=== PATIENT | female | born 1945 | race Caucasian/White ===

== ENCOUNTER 2020-02-01 22:46 | Emergency (ER) | payer MEDICARE ==
--- NOTE | 2020-02-02 00:10 | Emergency Department Note ---
History of Present Illnes History of Present Illness Chief Complaint: General Medicine Complaints History of Present Illness This is a 74 year old female PRESENTS TO THE ER VIA EMS FROM [facility] REPORTING AMS, HYPOXIA AND SOB PER RN AT [facility]; PER EMS, PT HAS BEEN ALTERED AND COMBATIVE THE PAST X2 DAYS; PTS BASELINE [id number]; PT DENIES CP OR SOB; SPO2 96% RA. 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 Arrival Mode: [place] Onset (how long ago): hour(s) (3) Location: NONE Quality: REPORTE LOW OXYGEN SATURATION Radiation: Reports non-radiation Severity: unable to specify Onset quality: sudden Duration (how long): hour(s) (3) Timing of current episode: unable to specify Progression: unable to specify Chronicity: new Context: Denies recent illness, Denies recent surgery Relieving factors: none Exacerbating factors: none Associated symptoms: Reports denies other symptoms Treatments prior to arrival: none Past Medical/Family History Physician Review I have reviewed the patient's past medical and family history. Any updates have been documented here. Past Medical History Recent Fever: No Clinical Suspicion of Infectio: No New/Unexplained Change in Ment: No Past Medical History: COPD, Asthma, Anxiety, Other Mental Illness Other Medical History: DEMENTIA DYSPHAGIA ALZHEIMERS Other Surgery: RT TOTAL KNEE REPLACEMENT Social History Smoking Cessation: Former smoker Counseling Performed: No Alcohol Use: None Any Illegal Drug Use: No Other Any Pre-Existing Lines (PICC,: No Review of Systems Review of Systems Constitutional: Reports no symptoms EENTM: Reports no symptoms Cardiovascular: Reports no symptoms Respiratory: Reports no symptoms Gastrointestinal: Reports no symptoms Genitourinary: Reports no symptoms Musculoskeletal: Reports no symptoms Integumentary: Reports no symptoms Neurological: Reports no symptoms Psychological: Reports no symptoms Endocrine: Reports no symptoms Hematological/Lymphatic: Reports no symptoms Review of other systems: All other systems negative Physical Exam Related Data Allergies: Coded Allergies: Penicillins (Verified Allergy, Unknown, 02/01/20) iodine (Verified Allergy, Unknown, 02/01/20) Uncoded Allergies: ORAL AND IV CONTRAST (Allergy, Unknown, 02/01/20) Triage Vital Signs Vital Signs Date Time Temp Pulse Resp B/P (MAP) Pulse Ox O2 Delivery O2 Flow Rate FiO2 02/01/20 23:36 97.8 92 20 136/92 96 Room Air Vital signs reviewed: Yes Physical Exam CONSTITUTIONAL Constitutional: Present well-developed, Present well-nourished HENT HENT: Present normocephalic, Present atraumatic, Present oropharynx clear/moist, Present nose normal HENT L/R: Present left ext ear normal, Present right ext ear normal EYES Eyes: Reports PERRL, Reports conjunctivae normal NECK Neck: Present ROM normal PULMONARY Pulmonary: Present effort normal, Present breath sounds normal CARDIOVASCULAR Cardiovascular: Present regular rhythm, Present heart sounds normal, Present capillary refill normal, Present normal rate GASTROINTESTINAL Abdominal: Present soft, Present nontender, Present bowel sounds normal GENITOURINARY Genitourinary: Present exam deferred SKIN Skin: Present warm, Present dry MUSCULOSKELETAL Musculoskeletal: Present ROM normal NEUROLOGICAL Neurological: Present alert, Present no gross motor or sensory deficits, Present other (PT DISORIENTED TO TIME AND THIS IS HER BASELINE) PSYCHOLOGICAL Psychological: Present mood/affect normal, Present judgement normal Results Imaging Imaging results reviewed: Yes Assessment & Plan Medical Decision Making MDM PT WITH REPORTED LOW OXYGEN SATURATION,PT OXYGEN SATURATION 96% ON ROOM AIR AND PT IS NOT IN RESPIRATORY DISTRESS CXR ORDERED TO EVAL FOR PNEUMONIA, PULMONARY PATRIA,A Assessment & Plan Final Impression: (1) Dementia Depart Disposition: XFER TO PSYCH HOSP/UNIT Last Vital Signs Date Time Temp Pulse Resp B/P (MAP) Pulse Ox O2 Delivery O2 Flow Rate FiO2 02/01/20 23:36 97.8 92 20 136/92 96 Room Air REFUGIO UMANZOR MD Feb 02, 2020 00:10
[2020-02-02 00:44] VITALS: BP 123/84
--- NOTE | 2020-02-02 00:44 | Diagnostic Imaging Report ---
EXAMINATION: CHEST SINGLE (PORTABLE) INDICATION: sob COMPARISON: None FINDINGS: Heart is nonenlarged. Pulmonary vasculature is within normal limits for technique. Strandy bibasilar opacities, likely atelectasis or scarring. Old left rib fracture. No pleural effusion. No pneumothorax. IMPRESSION: No acute thoracic radiographic abnormality. Signed by: Amado Lugo MD on 02/02/2020 12:40 AM
== END 2020-02-02 03:09 ==
LOC: ER 23:34
DX: F02.80 Dementia in other diseases classified elsewhere, unspecified severity, without behavioral disturbance, psychotic disturbance, mood disturbance, and anxiety (principal); G30.9 Alzheimer's disease, unspecified; J44.9 Chronic obstructive pulmonary disease, unspecified; F41.9 Anxiety disorder, unspecified; J45.909 Unspecified asthma, uncomplicated
CPT/HCPCS: 71045; 99283